=== PATIENT | female | born 1955 | race Caucasian/White ===

== ENCOUNTER 2017-02-28 13:40 | Emergency (ER) | payer MEDICARE, OTHER ==
[~2017-02-28 13:40] MED LIST: CARV3.12 PO; CLOP75TA PO; KCL20 PO; MAGN400 PO; MAGN400T PO; METO10 PO; MYCO180 PO; PRED5TAB PO; PROT40TA PO; TACR1 PO; VITA400C58 PO; ZOFR4TAB3 PO
[2017-02-28 13:43] VITALS: BP 175/113; PULSE 89; RESP 16; TEMP 99.1; O2SAT 96
--- NOTE | 2017-02-28 14:27 | PD ---
HPI Chief Complaint: Injury Time Seen by Provider: 14:26 Travel History International Travel<30 days: No Contact w/Intl Traveler<30days: No Traveled to known affect area: No History of Present Illness HPI 61-year-old female presents with Left wrist pain after a mechanical fall that occurred about noon today. States she missed the curb and fell onto her left wrist (FOOSH injury). Patient denies head, neck or back pain at this time. States she has trouble making a fist however does have full range of motion with pain. Patient denies numbness or tingling of the extremity. Patient denies shoulder or elbow pain. Patient does have a history of wrist fracture in her youth. Patient denies anticoagulant use. She has a history of high blood pressure. PFSH Past Medical History Hx Anticoagulant Therapy: Yes Arthritis: Yes Asthma: No Autoimmune Disease: No Blood Disorders: No Anxiety: No Depression: Yes Heart Rhythm Problems: No Cancer: Yes (skin) Cardiovascular Problems: Yes (STENTS X 2) High Cholesterol: No Chemotherapy: No Chest Pain: No Congestive Heart Failure: Yes COPD: No Cerebrovascular Accident: Yes Coronary Artery Disease: Yes Diabetes: Yes Diminished Hearing: No Endocrine: Yes Gastrointestinal Disorders: Yes GERD: Yes Glaucoma: No Genitourinary: Yes Headaches: No Hepatitis: No Hiatal Hernia: Yes (hx of abd hernia repair) Hypertension: Yes Immune Disorder: Yes Implanted Vascular Access Dvce: Yes Kidney Stones: No Musculoskeletal: Yes (CARPEL TUNNEL BILAT) Neurologic: Yes Psychiatric: Yes Reproductive: Yes Respiratory: No Migraines: Yes Myocardial Infarction: No Radiation Therapy: No Renal Failure: Yes (KIDNEY TRANSPLANT) Seizures: No Sickle Cell Disease: No Sleep Apnea: No Thyroid Disease: No Ulcer: Yes Menopausal: Yes Past Surgical History Abdominal Surgery: Yes (HERNIA REPAIR) AICD: No Appendectomy: Yes Arteriovenous Shunt: No Body Medical Devices: cardiac stents Cardiac Surgery: Yes (2 STENTS 1999) Cholecystectomy: Yes Coronary Stent: Yes (X2 IN 1999) Ear Surgery: No Endocrine Surgery: Yes Eye Surgery: Yes (altaf cataract surgery) Genitourinary Surgery: Yes (pancreatic and kidney transplant) Gynecologic Surgery: Yes (UTERINE ABLATION 2004) Insulin Pump: No Joint Replacement: No Neurologic Surgery: No Oral Surgery: No Pacemaker: No Thoracic Surgery: No Other Surgery: Yes (L AND R FOOT PARTIAL AMPUTATION) Social History Alcohol Use: No Tobacco Use: No Substance Use: No Allergies-Medications (Allergen,Severity, Reaction): Coded Allergies: *MDRO Multi-Drug Resistant Organism (Verified Allergy, Unknown, 02/28/17) Hx MRSA MRSA PCR Screen negative 09/20/14 and 09/23/14. Cleared per Infection Control. Reported Meds & Prescriptions Reported Meds & Active Scripts Active Tramadol (Tramadol HCl) 50 Mg Tab 50 Mg PO Q6H PRN 3 Days Reported Prednisone 1 Mg Tab 1 Mg PO DAILY Carvedilol 3.125 Mg Tab 3.125 Mg PO DAILY Prograf (Tacrolimus) 1 Mg Cap 1 Mg PO HS Myfortic (Mycophenolate Sodium) 180 Mg Tab 360 Mg PO BID Clopidogrel (Clopidogrel Bisulfate) 75 Mg Tab 75 Mg PO DAILY Review of Systems Except as stated in HPI: all other systems reviewed are Neg Physical Exam Narrative GENERAL: Well-nourished, well-developed patient. SKIN: Focused skin assessment warm/dry. HEAD: Normocephalic. EYES: No scleral icterus. No injection or drainage. NECK: Supple, trachea midline. No JVD or lymphadenopathy. No midline tenderness Left wrist- edema with ecchymosis about the wrist. Neurovascularly intact MUSCULOSKELETAL: No cyanosis, or edema. BACK: Nontender without obvious deformity. No CVA tenderness. No midline tenderness NEUROLOGICAL: Awake and alert. Cranial nerves II through XII intact. Motor and sensory grossly within normal limits. Five out of 5 muscle strength in all muscle groups. Normal speech. PSYCHIATRIC: No delusional thought processes. Data Data Last Documented VS Vital Signs Date Time Temp Pulse Resp B/P (MAP) Pulse Ox O2 Delivery O2 Flow Rate FiO2 02/28/17 17:22 02/28/17 13:43 99.1 89 16 96 Orders Orders Wrist, Complete (Hia0ods) (02/28/17 ) Splinting (02/28/17 ) Ed Discharge Order (02/28/17 16:39) MDM Medical Decision Making Medical Screen Exam Complete: Yes Emergency Medical Condition: Yes Differential Diagnosis Left wrist contusion versus abrasion versus fracture Narrative Course 61-year-old female presents with Left wrist pain after a mechanical fall that occurred about noon today. States she missed the curb and fell onto her left wrist (FOOSH injury). Patient denies head, neck or back pain at this time. States she has trouble making a fist however does have full range of motion with pain. Patient denies numbness or tingling of the extremity. Patient denies shoulder or elbow pain. Patient does have a history of wrist fracture in her youth. Patient denies anticoagulant use. She has a history of high blood pressure. Patient also has a history of kidney transplant. Vital signs stable Physical exam consistent with contusion versus fracture. Neurovascularly intact. No tenderness about the shoulder or elbow. Left wrist [id number] distal radius fracture Sugar tong splint applied by [employer] Patient to follow up with orthopedics. Tramadol for pain. Avoid NSAIDs. Compress and elevate the fracture site as needed for symptom relief Follow-up primary care physician within 2-3 days Advised to follow up in the ER for worsening persistent symptoms Diagnosis Primary Impression: Fracture, radius, distal Qualified Codes: S52.592A - Other fractures of lower end of left radius, initial encounter for closed fracture Referrals: Orthopedist Additional Instructions: Keep wrist wrapped. Follow-up with orthopedist within 2-3 days. May use ice and elevate for symptom relief. Use Tylenol per package instructions for pain relief. Follow-up with her primary care physician within 2-3 days. If your symptoms persist or worsen return to the emergency department. Scripts Tramadol (Tramadol) 50 Mg Tab 50 MG PO Q6H Y for PAIN for 3 Days, #12 TAB 0 Refills Prov: Liu Olvera MD 02/28/17 Disposition: 01 DISCHARGE HOME Condition: Stable Angie Cali Feb 28, 2017 14:27
--- NOTE | 2017-02-28 15:28 | RADRPT ---
EXAM DATE/TIME: 02/28/2017 14:35 [facility] COMPARISON: No previous studies available for comparison. INDICATIONS : Fell today, pain on the radial side of the left wrist and distal forearm MEDICAL HISTORY : Stroke. Diabetes mellitus type II. SURGICAL HISTORY : partial left foot amputaion ENCOUNTER: Initial ACUITY: 1 day PAIN SCORE: 10/10 LOCATION: Left wrist FINDINGS: 3 views of the left forearm show diffuse osteopenia. There is an acute fracture mild distal radial me taphysis. No angulation or distraction. The fracture does extend to the radial ulnar articulation. No extension seen to the radiocarpal joint surface. Ulnar styloid is intact. Calcified plaque involving the ulnar artery and radial artery. CONCLUSION: 1. Acute distal radial metaphyseal fracture as detailed above. Adán Chappell Jr., MD on February 28, 2017 at 15:17 Board Certified Radiologist. This report was verified electronically.
[2017-02-28] MEDS ORDERED: TRAM50TA PO (15:44)
[2017-02-28] MEDS ORDERED: MYCO180 PO (16:09)
[2017-02-28] MEDS ORDERED: TACR1 PO (16:09)
[2017-02-28] MEDS ORDERED: CLOP75TA PO (16:09)
[2017-02-28] MEDS ORDERED: CARV3.12 PO (16:10)
[2017-02-28] MEDS ORDERED: PRED1 PO (16:10)
== END 2017-02-28 17:50 | disposition home or self-care (01) ==
LOC: NEPK 13:40
DX: S52.502A Unspecified fracture of the lower end of left radius, initial encounter for closed fracture (principal); M19.90 Unspecified osteoarthritis, unspecified site; I50.9 Heart failure, unspecified; E11.22 Type 2 diabetes mellitus with diabetic chronic kidney disease; N18.9 Chronic kidney disease, unspecified; I13.0 Hypertensive heart and chronic kidney disease with heart failure and stage 1 through stage 4 chronic kidney disease, or unspecified chronic kidney disease; K21.9 Gastro-esophageal reflux disease without esophagitis; W10.1XXA Fall (on)(from) sidewalk curb, initial encounter; Z86.73 Personal history of transient ischemic attack (TIA), and cerebral infarction without residual deficits
CPT/HCPCS: 29125; 73110